=== PATIENT | male | born 1970 | race Caucasian/White ===

== ENCOUNTER 2020-09-26 11:59 | Observation (INO) | payer SELFPAY ==
[2020-09-26 12:31] LABS: #Basophils 0.1 thou/uL (0.0-0.2); #Eosinphils 0.2 thou/uL (0.0-0.7); #Lymphocytes 3.1 thou/uL (1.20-3.40); #Monocytes 1.1 thou/uL (0.11-0.59); #Neutrophils 4.7 thou/uL (1.40-6.50); %Basophils 1.3 % (0.0-1.0); %Eosinophils 2.5 % (0.0-10.0); %Lymphocytes 33.5 % (21.0-51.0); %Monocytes 11.9 % (0.0-10.0); %Neutrophils 50.8 % (42.0-75.0); Hemoglobin 14.9 g/dL (14.0-18.0); Mean Corpuscular HGB CONC 32.6 g/dL (32.0-36.0); Mean Corpuscular Hemoglobin 32.1 pg (27.0-31.0); Mean Corpuscular Volume 98.6 fL (78.0-98.0); Mean Platelet Volume 7.5 fL (7.4-10.4); Platelet Count 258 thou/uL (130-400); RBC Distribution Width 12.4 % (11.5-14.5); Red Blood Cell (RBC) Count 4.66 mill/uL (4.70-6.10); White Blood Cell (WBC) Count 9.3 thou/uL (4.8-10.8)
[2020-09-26] MEDS ORDERED: Nitroglycerin 0.4 MG TAB 1 EACH ONE ×2 (12:46→13:41)
[2020-09-26] MEDS ORDERED: Aspirin Chewable 81 MG TAB ONE (12:46)
[2020-09-26] MEDS ORDERED: Nitroglycerin 2% Ointment 1 INCH/1 GM Packet ONE (12:46)
[2020-09-26 12:50] LABS: ALT (SGPT) 18 U/L (8-55); AST (SGOT) 19 U/L (5-34); Albumin 4.3 g/dL (3.5-5.0); Alkaline Phosphatase 88 U/L (40-110); Anion Gap 10 mmol/L (10-20); BUN (Urea Nitrogen) 12 mg/dL (8.9-20.6); Bilirubin, Total 0.2 mg/dL (0.2-1.2); Calc. Creatinine Clearance 0 mL/min (70-130); Calcium 9.4 mg/dL (7.8-10.44); Carbon Dioxide 27 mmol/L (22-29); Chloride 106 mmol/L (98-107); Globulin 3.5 g/dL (2.4-3.5); Glucose 97 mg/dL (70-105); Lipase 101 U/L (8-78); Potassium 3.9 mmol/L (3.5-5.1); Protein, Total 7.8 g/dL (6.0-8.3); Sodium 139 mmol/L (136-145)
[2020-09-26] MEDS ORDERED: Nitroglycerin 0.4 MG TAB (25 Tab Bottle) SL PRN (14:30)
[2020-09-26] MEDS ORDERED: Lisinopril 10 MG TAB PO SCH (14:53)
[2020-09-26 15:19] LABS: Hemoglobin A1c 5.3 % (4.0-6.0)
[2020-09-26 16:14] LABS: Troponin I Less than 0.010 ng/mL (< 0.028)
[2020-09-26 16:37] VITALS: BMI 28.6
[2020-09-26 18:44] LABS: Troponin I Less than 0.010 ng/mL (< 0.028)
[2020-09-26] MEDS: Famotidine 20 MG TAB PO SCH (21:04)
[2020-09-26 23:55] LABS: SARS-CoV-2 PCR by NAA Not Detected (NotDetected)
[2020-09-27 06:21] LABS: #Basophils 0.1 thou/uL (0.0-0.2); #Eosinphils 0.3 thou/uL (0.0-0.7); #Lymphocytes 2.1 thou/uL (1.20-3.40); #Neutrophils 5.7 thou/uL (1.40-6.50); %Basophils 0.8 % (0.0-1.0); %Eosinophils 3.3 % (0.0-10.0); %Lymphocytes 23.2 % (21.0-51.0); %Monocytes 10.6 % (0.0-10.0); %Neutrophils 62.1 % (42.0-75.0); ALT (SGPT) 15 U/L (8-55); AST (SGOT) 17 U/L (5-34); Albumin 3.7 g/dL (3.5-5.0); Alkaline Phosphatase 73 U/L (40-110); Anion Gap 10 mmol/L (10-20); BUN (Urea Nitrogen) 10 mg/dL (8.9-20.6); Bilirubin, Total 0.5 mg/dL (0.2-1.2); Calc. Creatinine Clearance 135 mL/min (70-130); Carbon Dioxide 27 mmol/L (22-29); Cardiac Risk 4.3 (Less than 4.5); Chloride 105 mmol/L (98-107); Cholesterol 181 mg/dl (< 200 Desired); Globulin 2.9 g/dL (2.4-3.5); Glucose 105 mg/dL (70-105); HDL Cholesterol 42 mg/dL (>60 Neg Risk); Hemoglobin 13.9 g/dL (14.0-18.0); LDL Cholesterol, Calculated 118 mg/dL; Mean Corpuscular HGB CONC 34.2 g/dL (32.0-36.0); Mean Corpuscular Hemoglobin 33.8 pg (27.0-31.0); Mean Corpuscular Volume 98.8 fL (78.0-98.0); Mean Platelet Volume 7.4 fL (7.4-10.4); Platelet Count 227 thou/uL (130-400); Potassium 3.8 mmol/L (3.5-5.1); Protein, Total 6.6 g/dL (6.0-8.3); RBC Distribution Width 12.4 % (11.5-14.5); Sodium 138 mmol/L (136-145); Triglycerides 103 mg/dL (Less than 150); White Blood Cell (WBC) Count 9.1 thou/uL (4.8-10.8)
[2020-09-27] MEDS ORDERED: ADENOSINE 60 MG/20 ML VIAL ONE (08:41)
[2020-09-27] MEDS ORDERED: Lisinopril 10 MG TAB PO SCH (09:00)
[2020-09-27] MEDS: Aspirin Chewable 81 MG TAB PO SCH (09:05)
[2020-09-27] MEDS: Famotidine 20 MG TAB PO SCH ×2 (09:05→21:38)
[2020-09-27] MEDS ORDERED: Nicotine 21 MG PATCH TD SCH (15:00)
[2020-09-27] MEDS ORDERED: Carvedilol 6.25 MG TAB PO SCH (17:30)
[2020-09-27] MEDS ORDERED: Atorvastatin Calcium 20 MG TAB PO SCH (21:00)
[2020-09-27] MEDS: Lisinopril 10 MG TAB PO SCH (21:38)
[2020-09-28] MEDS ORDERED: Carvedilol 6.25 MG TAB PO SCH (08:00)
[2020-09-28] MEDS: Aspirin Chewable 81 MG TAB PO SCH (08:33)
[2020-09-28] MEDS: Famotidine 20 MG TAB PO SCH (08:33)
[2020-09-28] MEDS: Lisinopril 10 MG TAB PO SCH (08:34)
[2020-09-28 13:05] VITALS: BP 118/75; TEMP 97.6
== END 2020-09-28 13:05 | disposition home or self-care (01) ==
LOC: ERS 11:59 → ERHOLD 13:46 → 2SW 16:32
PROVIDERS: ADMIT Emergency Medicine; ATTEND Emergency Medicine
DX: R07.2 Precordial pain (principal); I16.9 Hypertensive crisis, unspecified; I10 Essential (primary) hypertension; F17.210 Nicotine dependence, cigarettes, uncomplicated; K21.9 Gastro-esophageal reflux disease without esophagitis; I42.9 Cardiomyopathy, unspecified; R00.8 Other abnormalities of heart beat; I49.3 Ventricular premature depolarization; Z91.14 Patient's other noncompliance with medication regimen; Z20.822 Contact with and (suspected) exposure to COVID-19
CPT/HCPCS: 36415; 71045; 78452; 80053; 80061; 83036; 83690; 84484; 85025; 93005; 93010; 93017; 93306; 94760; A9500; G0378; J0153; U0003; U0005